=== PATIENT | female | born 1985 | race Caucasian/White ===

== ENCOUNTER 2018-08-16 04:21 | Inpatient (IN) | payer BC ==
[2018-08-16] MEDS ORDERED: NS / Oxytocin 40 units/1000ml 1,000 ML IV PRN (05:26)
[2018-08-16] MEDS ORDERED: Lidocaine 1% (PF) 30 ML VIAL SC PRN (05:26)
[2018-08-16] MEDS ORDERED: Misoprostol 200 MCG TAB PR PRN (05:26)
[2018-08-16] MEDS ORDERED: Methylergonovine 0.2 MG/ML VIAL IM PRN ×2 (05:26→19:11)
[2018-08-16] MEDS ORDERED: Ibuprofen 800 MG TAB PO PRN (05:26)
[2018-08-16] MEDS ORDERED: Ondansetron PF 4 MG/2 ML Vial IVP PRN (05:26)
[2018-08-16] MEDS ORDERED: HYDROcodone/Acetaminophen 5/325 mg Tablet PO PRN ×4 (05:26→19:11)
[2018-08-16] MEDS ORDERED: Lactated Ringer's 1,000 ML IV PRN (05:26)
[2018-08-16] MEDS ORDERED: Promethazine HCl 25 MG/ML VIAL IM PRN (05:26)
[2018-08-16] MEDS ORDERED: Penicillin G Potassium 5 MILL.UNITS in Sodium Chloride 0.9% 100 ML IVPB SCH (05:45)
[2018-08-16 06:18] LABS: Hemoglobin 11.5 g/dL (12.0-16.0); Mean Corpuscular HGB CONC 32.8 g/dL (32.0-36.0); Mean Corpuscular Volume 91.7 fL (78.0-98.0); Mean Platelet Volume 9.2 fL (7.4-10.4); Platelet Count 196 thou/uL (130-400); RBC Distribution Width 13.3 % (11.5-14.5); Red Blood Cell (RBC) Count 3.83 mill/uL (4.20-5.40)
[2018-08-16 06:22] VITALS: BMI 31.8
[2018-08-16 06:57] LABS: HBSAg Index 0.27 S/CO (0-0.99); Hep B Surf Ag Non-Reactive S/CO (NonReactive)
[2018-08-16 06:58] LABS: Syphilis Antibody Nonreactive (Nonreactive); Syphilis Antibody Index 0.05 S/CO (<1.00 Non-Reactive)
--- NOTE | 2018-08-16 08:25 | PDOC.LDHP ---
Labor and Delivery H&P Chief complaint: contractions HPI: Patient woke up at 0530 with complaints of vaginal bleeding taht filled one pad. She has been having irregular contractions since that time. She is uncertain if her water is broken. The baby is moving normally. She delivered in the ER precipitously last year. Current gestational age (weeks): 40 (and 6 days) Due date: 08/10/18 Dating criteria: first trimester ultrasound Grav: 4 Para: 3 OB History Details: Precipitous delivery wit 3rd child. Current complications: other (close interval .) Current medications: pre-mynor vitamins Allergies/Adverse Reactions: Allergies Allergy/AdvReac Type Severity Reaction Status Date / Time No Known Allergies Allergy Verified 08/16/18 06:26 Social history: none - Physical Exam Vital signs reviewed and normal: yes General: NAD, breathing through contractions Heart: RRR Lungs: nonlabored breathing Abdomen: gravid Extremeties: trace edema FHT: category 1 - Vaginal Exam cm dilated: 4 Effacement: 90% Station: -3 - OB Labs Blood type: A RH: positive Antibody Screen: negative HIV: negative RPR: negative HEPSAg: negative 1 hour GCT: negative GBS: positive Urine drug screen: not done Rubella: immune - Assessment L&D Assessment: term patient in labor - Plan Plan: admit to L&D (low intervention protocols.)
[2018-08-16] MEDS: Penicillin G 2.5 MILL.units 2.5 MILL.UNITS in Premix Bag 1 BAG IVPB SCH ×3 (10:38→23:48)
[2018-08-16 16:18] LABS: Actual Bicarbonate (HCO3a) 24.7 mEq/L (22-28); Base Excess (BEa) -4.8 mEq/L (-2.0 to +3.0)
--- NOTE | 2018-08-16 17:49 | PDOC.OPDEL ---
OB Operative/Delivery Note Delivery Dr/Surgeon: ALIN major Pre-Delivery Diagnosis: active labor Procedure/Post Delivery Dx: spontaneous vaginal delivery Weeks gestation: 41 Anesthesia: none - Findings A Sex: male - 1 min: 7 - 5 min: 7 (7 at 10 mins) - Additional Findings/Plan Placenta delivered: spontaneous Repaired Obstetrical Laceration: none Estimated blood loss: 400mL Post delivery plan: routine recovery
[2018-08-16] MEDS ORDERED: Lanolin Ointment 7 GM TUBE TOP PRN (19:11)
[2018-08-16] MEDS ORDERED: Misoprostol 200 MCG TAB VAG PRN (19:11)
[2018-08-16] MEDS ORDERED: Benzocaine/Menthol 20-0.5% 60 ML CAN TOP PRN (19:11)
[2018-08-16] MEDS ORDERED: Adacel (T-DAP) 0.5 ML SYRINGE IM ONE (19:11)
[2018-08-16] MEDS ORDERED: Varicella virus, LIVE 0.5 ML VIAL SC ONE (19:11)
[2018-08-16] MEDS ORDERED: Bisacodyl 10 MG SUPP PR PRN (19:11)
[2018-08-16] MEDS ORDERED: Measles/Mumps/Rubella 10 MCG/0.5 ML VIAL SC ONE (19:11)
[2018-08-16] MEDS ORDERED: Milk Of Magnesia 30 ML UDCUP PO PRN (19:11)
[2018-08-16] MEDS ORDERED: NS / Oxytocin 40 units/1000ml 1,000 ML IV SCH (19:11)
[2018-08-16] MEDS ORDERED: Bicitra 30 ML UDCUP ONE (19:29)
[2018-08-16] MEDS: Ibuprofen 800 MG TAB PO SCH (21:32)
[2018-08-16] MEDS: Docusate Calcium (SURFAK) 240 MG CAP PO SCH (21:32)
[2018-08-17 06:36] LABS: Hemoglobin 10.9 g/dL (12.0-16.0); Mean Corpuscular HGB CONC 33.2 g/dL (32.0-36.0); Mean Corpuscular Volume 93.5 fL (78.0-98.0); Mean Platelet Volume 8.9 fL (7.4-10.4); Platelet Count 172 thou/uL (130-400); RBC Distribution Width 13.3 % (11.5-14.5); Red Blood Cell (RBC) Count 3.52 mill/uL (4.20-5.40); White Blood Cell (WBC) Count 8.7 thou/uL (4.8-10.8)
[2018-08-17] MEDS: Ibuprofen 800 MG TAB PO SCH ×2 (06:36→13:54)
[2018-08-17] MEDS: Ferrous Sulfate 325 MG TAB PO SCH ×2 (08:43→18:18)
[2018-08-17] MEDS: Docusate Calcium (SURFAK) 240 MG CAP PO SCH (09:05)
[2018-08-17 12:08] VITALS: BP 127/76; TEMP 98.4
--- NOTE | 2018-08-17 12:28 | PDOC.PP ---
Post Progress Note Post Day #: 1 Subjective: Doing well. is going well. The patient can get up to the restroom, urinate, is passing gas. Has no concerns. PO intake tolerated: yes Flatus: yes Ambulation: yes Vital Signs (12 hours) Temp Pulse Resp BP Pulse Ox 08/17/18 12:07 98.4 F 74 20 127/76 08/17/18 08:12 98.7 F 67 20 110/55 L 97 08/17/18 04:01 98.2 F 62 18 135/82 97 08/17/18 00:46 98.1 F 79 18 125/58 L 98 Weight Weight 191 lb - Physical Examination General: NAD Cardiovascular: no m/r/g, RRR Respiratory: clear to auscultation bilaterally, non-labored breathing Abdominal: lochia (minimal) Extremities: negative homans (B) Skin: no rash Neurological: no gross focal deficits Psychiatric: A&Ox3, normal affect Result Diagrams: 08/17/18 06:18 Additional Labs: Post Labs Blood Type A POSITIVE 08/16/18 06:00 Hep Bs Antigen Non-Reactive S/CO (NonReactive) 08/16/18 06:00 (1) (spontaneous vaginal delivery) Code(s): O80 - ENCOUNTER FOR FULL-TERM UNCOMPLICATED DELIVERY Status: Acute - Assessment/Plan G4 now p4 sp . NML PPD #1 discharge home today. 6 week f/up
== END 2018-08-17 18:49 | disposition home or self-care (01) | DRG 807 ==
LOC: L&D/OP 04:21 → L&D-LIB 05:34 → 3SE 22:03
PROVIDERS: ADMIT Student in an Organized Health Care Education/Training Program; ATTEND Student in an Organized Health Care Education/Training Program
PROC: 10E0XZZ Delivery of Products of Conception, External Approach (ICD-10-PCS; principal; 2018-08-16)
PROC: 10907ZC Drainage of Amniotic Fluid, Therapeutic from Products of Conception, Via Natural or Artificial Opening (ICD-10-PCS; 2018-08-16)
DX: O62.3 Precipitate labor (principal); Z37.9 Outcome of delivery, unspecified; Z3A.41 41 weeks gestation of pregnancy
CPT/HCPCS: 36415; 82805; 85027; 86780; 86850; 86900; 86901; 87340; 88307; 90707; 90715; 90716; 99285; J2210; J2540; J7050